=== PATIENT | female | born 1960 | race Caucasian/White ===

== ENCOUNTER 2019-02-17 09:26 | Emergency (ER) | payer BC, OTHER ==
--- OUTSIDE RECORDS SUMMARY | 2019-02-17 09:34 | XMS REPORT | Continuity of Care Document ---
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 Onset: 09/10 lower extremity Acute sinusitis Best Melchor M.D. Onset: 09/28/2011 Common cold Best Melchor M.D. Onset: 12/30/2011 Rheumatoid arthritis Best Melchor M.D. Onset: 01/27/2017 Migraine Best Melchor M.D. Onset: 01/27/2017 Family History Date Family Member(s) Observation Comments General grandparents with heart disease in their 80s; glaucoma Mother Breast lump Onset: (age 80 Years) Maternal Grandfather Congestive Heart Failure (CHF) Onset: (age 80 Years) Maternal Grandmother Congestive Heart Failure (CHF) Social History Type Date Description Comments Sex Unknown Marital Status Patient is Living Situation Lives with spouse Tobacco Use Start: Unknown Nonsmoker ETOH Use Denies alcohol use Tobacco Use Start: Unknown Patient has never smoked Enjoy Exercising Does enjoy exercising Allergies, Adverse Reactions, Alerts Active Allergies Reaction Severity Comments Date Sulfa Drugs 01/22/1998 Medications Active Medications SIG Qnty Indications Ordering Date Provider Amoxicillin take two 28caps J06.9 Anjana Hernandez 02/08/2019 500mg Capsules capsules by ALEXIA Rajan mouth twice daily until gone Nitrofurantoin Monohyd take one by 14caps N39.0 Anjana Hernandez 08/25/2018 Macro mouth twice ALEXIA Rajan 100mg Capsules daily for 7 days. Prednisone 1 tablet once 10tabs Mateus Valera 04/25/2018 20mg Tablets daily in the MD Garett morning Magnesium 1 by mouth Gale 12/10/2016 400mg Tablets every day - OTC LILLI Pinto Sumatriptan Succinate take 1 tablet 9tabs 784.0 Bets Melchor, 2010 100mg by mouth at M.D. Tablets onset of migraine, can repeat x 1 in 2 hours if necessary, hold for any vertigo or speech problems Orencia IV infusion Unknown every 4 weeks Hydroxychloroquine 1 by mouth Unknown Sulfate twice a day 200mg Tablets Methotrexate 7 tablets per Unknown 2.5mg Tablets week Folic Acid 1 by mouth Unknown 1mg Tablets every day Prednisone 1 po qd Unknown 5mg Tablets History Medications Amoxicillin 1 tab twice a day 14tabs J01.90 Mateus Valera 04/25/2018 - 875mg x 7 days MD Garett 08/25/2018 Tablets Amoxicillin 1 tab twice a day 14tabs J01.90 Gale 12/10/2016 - 875mg x 7 days LILLI Pinto 01/27/2017 Tablets Azithromycin 2 by mouth today 6tabs J01.90 Best Melchor, 08/28/2015 - 250mg then 1 by mouth M.D. 12/10/2016 Tablets every day x 4 days Tamiflu 1 by mouth every 10caps Best Melchor, 11/20/2014 - 75mg Capsules day x 10 days M.D. 11/30/2014 Amoxicillin 1 tab by mouth 21tabs 381.4 Gale 08/14/2014 - 500mg three times a day LILLI Pinto 10/16/2014 Tablets x 7 days Samples Levofloxacin 1 by mouth every 10tabs 461.8 Jorge Lopez M.D. 09/11/2013 - 500mg day for 10 days 08/14/2014 Tablets Amitriptyline HCL take 1 tablet 30tabs 784.0 Best Melchor, 08/24/2012 - every day at M.D. 08/28/2015 10mg Tablets bedtime Avelox 1 po qd 10tabs Best Melchor, 01/07/2012 - 400mg Tablets M.D. 01/17/2012 Azithromycin 2 po today then 1 6tabs 460 Best Melchor, 12/30/2011 - 250mg po qd x 4 days M.D. 01/04/2012 Tablets Levofloxacin 1 po qd x10 days 10tabs 461.8 Best Melchor, 09/28/2011 - 500mg M.D. 10/08/2011 Tablets Enoxaparin Sodium 80 mg sq bid 10units Best Melchor, 09/10/2011 - M.D. 09/28/2011 80mg/0.8ML Solution Percocet 1-2 po 6-8 hours 20tabs Best Melchor, 08/08/2011 - 5-325mg prn M.D. 12/30/2011 Tablets Orphenadrine Citrate 1 po bid 60tabs 784.0 Best Melchor, 07/04/2011 - CR M.D. 09/11/2013 100mg Tablets ER 12HR Nabumetone 1 po bid 60tabs 784.0 Best Melchor, 07/04/2011 - 500mg M.D. 07/30/2011 Tablets Nabumetone Take 1 Tablets By 40tabs Best Melchor, 05/14/2011 - 500mg Mouth Two Times M.D. 07/04/2011 Tablets A Day Orphenadrine Citrate Take 1 Tablets By 40tabs Best Melchor, 2010 - ER Mouth Two Times M.D. 07/04/2011 100mg Tablets ER A Day as Needed 12HR Orphenadrine Citrate 1 po bid prn 40tabs 784.0 Best Glez. Wilvercheri, 2010 - CR M.D. 05/05/2011 100mg Tablets ER 12HR Nabumetone 1 po bid 40tabs 784.0 Best A. Wilverlow, 04/23/2011 - 500mg M.D. 05/03/2011 Tablets Craniosacral evaluation and 784.0 Best AmarisAbdelrahman Melchor, 04/23/2011 - Physical Therapy treatment M.D. 05/05/2011 Xanax 1 po bid as 10tabs 300.09 Best Amaris. Jill, 01/05/2011 - 0.25mg Tablets directed, q6h ten M.D. 04/23/2011 Augmentin 1 po bid 20tabs 461.9 Best AmarisAbdelrahman Melchor, 10/29/2010 - 875-125mg M.D. 11/08/2010 Tablets Hydrocodone-Acetamin 1 q 6 hrs prn 30tabs [facility] 01/17/2010 - [facility] 10/29/2010 5-500mg Tablets Korbel Restoril 1-2 hs prn for 60caps Best Melchor, 01/17/2010 - 15mg sleep M.D. 09/11/2013 Capsules Augmentin 1 po bid with 20tabs 461.9 Best Melchor, 12/10/2008 - 875mg food M.D. 12/20/2008 Tablets Allerx Dose Pack 1 po bid 20tabs 461.9 Best AAbdelrahman Melchor, 12/10/2008 - M.D. 12/20/2008 8mg;2.5mg;120MG;2.5M Tablets Ambien 1 po qhs prn 30tabs 780.52 Best Melchor, 12/10/2008 - 10mg Tablets sleep M.D. 05/20/2010 Mobic 1 PO qd With Food 90tabs [facility] 09/04/2008 - 15mg Tablets prn [facility] 10/29/2010 Korbel Lyrica 1 up to tid as 90caps 716.90 Best Melchor, 02/29/2008 - 25mg Capsules directed M.D. 09/04/2008 Medrol Dosepak as Directed 1tabs 716.90 Best Melchor, 02/13/2008 - 4mg M.D. 02/29/2008 Tablets Amoxicillin 1 PO bid 20tabs 381.19 Hero Esquivelrer, [facility] 09/03/2006 - 500mg 12/27/2006 Tablets Cortisporin Otic 4-5 gtts Into R 1Bottle Paolo EagleAbdelrahman Bartlett, 05/26/2006 - Susp Ear qid Until M.D. 12/27/2006 Clear Ibuprofen [facility] 05/03/2006 - 200mg [facility] 09/04/2008 Capsules Korbel Mariana 1 po qd 30tabs Yue Keita, 03/30/2005 - 180mg Tablets Afnp-C 12/10/2008 Biaxin 1 po bid x10 days 20units Yue Keita, 01/22/2005 - 500mg Afnp-C 02/01/2005 Nasonex 2 sprays each 1units Yue Keita, 01/22/2005 - 50mcg nostril qd Afnp-C 05/03/2006 Amoxil 1 PO tid 30units Nathalie Colon, 12/29/2004 - 500mg Afnp-C 01/08/2005 Physical Therapy 1. rotator cuff 6WKS Ambrosio Oleary, 08/27/2004 - tendinitis M.D. 12/01/2004 3/WK bilaterally Continue Another 4-6 WKS To Achieve Maximal Improvement Mariana-D 1 po bid prn for 60units Yue Keita, 06/16/2004 - 60mg allergy symptoms Afnp-C 12/10/2008 Rhinocort Aqua 1 Star In Each 1units Hero Robert [facility] 06/16/2004 - Nostril qd 10/22/2004 Inhaler Keflex 1 po bid 20units Hero Robert, [facility] 06/16/2004 - 500mg 08/27/2004 Keflex 1 tab bid x 10 20units Yue Keita, 09/19/2003 - 500mg days Afnp-C 09/29/2003 Relafen 1 PO bid prn 60units Ambrosio Oleary, 08/21/2003 - 500mg M.D. 09/20/2003 Tramadol 1 PO tid prn 90units Ambrosio Oleary, 07/31/2002 - 50M G M.D. 08/27/2004 Skelaxin 1 PO tid prn 90units Ambrosio Oleary, 07/31/2002 - 400mg M.D. 08/27/2004 Amitriptyline 1 AT hs 30units Ambrosio Oleary, 07/31/2002 - 50mg M.D. 08/27/2004 Valium 1/2 - 1 Tab qd 30units Solomon Cade 05/16/2001 - 2mg prn Lola Mondragon 07/31/2002 Macrobid 1 14Tabs Hero Yesica, [facility] 05/06/2001 - 100mg 05/13/2001 PO bid With Meals Ibuprofen One Q8H prn Pain 0units Hero Robert, [facility] 02/18/2000 - 800mg 07/31/2002 Take With Food Amoxicillin 1 PO tid 30units Solomon Alyssia 10/30/1999 - 250mg Lola Mondragon 11/09/1999 Soma 1 PO qid prn 40unfalguni Solomon Cade 12/03/1998 - 350mg Lola Mondragon 12/23/1998 Valium 1 PO tid prn 12units Solomon Cade 11/28/1998 - 5mg Lola Mondragon 12/03/1998 Soma 1 PO qid prn 40units Solomon Cade 11/18/1998 - 350mg Lola Mondragon 12/02/1998 Naproxen 1 tid For One 50units Solomon Cade 11/18/1998 - 375mg Tab Week Then tid prn Lola Mondragon 12/02/1998 Keflex 1 PO bid 20tabs Jose Walters, 10/02/1998 - 5Oomg Tabs M.DAbdelrahman 10/12/1998 Motrin 1 PO tid prn 60units Paolo Bartlett, 09/18/1998 - 800mg M.DAbdelrahman 11/18/1998 Amoxicillin 1 PO tid 30units Solomon Alyssia 09/02/1998 - 250mg Lola Mondragon 09/12/1998 Robitussin ac 1/2-1 TSP PO Q4HS 4Oz Solomon Cade 09/02/1998 - Liq prn Cough Lola Mondragon 09/12/1998 Robitussin Dac 1-2 TSP Q 4-6 HRS 120cc Shakeel Avila, 01/22/1998 - Liq prn Cough M.DAbdelrahman 02/05/1998 Amoxicillin 1 Tablet 3 Times 30tabs Shakeel Avila, 01/22/1998 - 500mg Daily M.D. 02/01/1998 Tablets Oxycodone/Acetaminop 1 po q 6 hrs prn 45tabs Unknown - hen 04/23/2011 5-325mg Tablets Mobic 1 po bid 60tabs Unknown - 7.5mg Tablets 07/04/2011 Oxycodone/Acetaminop 1 po q8 hrs prn 60tabs Unknown - hen 09/10/2011 7.5-500mg Tablets Mariana Allergy 1 po qd 30tabs Unknown - 180mg 09/10/2011 Tablets Coumadin 1 1/2 po qd, 2 po 100tabs Best Melchor, - 5mg Tablets on Wednesday or as M.D. 08/24/2012 directed Meloxicam 1 po qd prn Unknown - 7.5mg 08/28/2015 Tablets Propranolol HCL take one tablet 60tabs Unknown - 40mg by mouth twice a 12/10/2016 Tablets day Amitriptyline HCL 4 po qhs Unknown - 04/25/2018 10mg Tablets Enbrel inject once a Unknown - Soln Prefill week 12/10/2016 Syringe Immunizations CPT Code Status Date Vaccine Lot # [id number] Given 07/05/2018 Influenza Vac, Quadriv[place], [place] [id number] Given 08/13/2017 Influenza Vac, [place] [id number] Given 12/10/2016 Tdap Tetanus, W Pertussis [id number] Given 04/20/2007 Tdap Tetanus, W Pertussis [id number] Given 08/21/2003 DO Not Use Split Influenza Virus Vaccine Vital Signs Date Vital Result Comment 08/25/2018 1:04pm BP Systolic 134 mmHg BP Diastolic 84 mmHg Heart Rate 80 /min Body Temperature 97.9 F Respiratory Rate 16 /min Height 63.25 inches 5'3.25" Weight 224.00 lb BMI (Body Mass Index) 39.4 kg/m2 04/25/2018 10:29am BP Systolic 168 mmHg BP Diastolic 102 mmHg Heart Rate 94 /min Body Temperature 98.8 F O2 % BldC Oximetry 96 % Height 63.25 inches 5'3.25" Weight 223.00 lb BMI (Body Mass Index) 39.2 kg/m2 01/27/2017 1:58pm BP Systolic 132 mmHg 158/88 on arrival BP Diastolic 80 mmHg 158/88 on arrival Heart Rate 84 /min Body Temperature 98.3 F Respiratory Rate 18 /min Height 63.25 inches 5'3.25" Weight 226.00 lb BMI (Body Mass Index) 39.7 kg/m2 12/10/2016 9:05am BP Systolic 166 mmHg BP Diastolic 72 mmHg Heart Rate 106 /min Body Temperature 98.6 F Respiratory Rate 20 /min O2 % BldC Oximetry 98 % Height 64.5 inches 5'4.50" Weight 220.12 lb BMI (Body Mass Index) 37.2 kg/m2 08/28/2015 3:22pm BP Systolic 120 mmHg BP Diastolic 80 mmHg Heart Rate 88 /min Body Temperature 98.9 F Respiratory Rate 16 /min O2 % BldC Oximetry 98 % Height 64.5 inches 5'4.50" Weight 209.00 lb BMI (Body Mass Index) 35.3 kg/m2 10/16/2014 10:36am BP Systolic 140 mmHg BP Diastolic 80 mmHg Heart Rate 74 /min Body Temperature 99.1 F Respiratory Rate 15 /min Height 64.5 inches 5'4.50" Weight 208.00 lb BMI (Body Mass Index) 35.1 kg/m2 08/14/2014 2:55pm BP Systolic 142 mmHg BP Diastolic 80 mmHg Heart Rate 76 /min Body Temperature 99.6 F Respiratory Rate 18 /min Height 63.75 inches 5'3.75" Weight 211.00 lb BMI (Body Mass Index) 36.5 kg/m2 09/11/2013 9:42am BP Systolic 160 mmHg BP Diastolic 82 mmHg Heart Rate 72 /min Body Temperature 98.9 F Respiratory Rate 16 /min Height 63.75 inches 5'3.75" Weight 199.00 lb BMI (Body Mass Index) 34.4 kg/m2 04/20/2013 3:29pm BP Systolic 142 mmHg BP Diastolic 84 mmHg Heart Rate 74 /min Body Temperature 98.0 F Respiratory Rate 18 /min Height 63.75 inches 5'3.75" Weight 202.00 lb BMI (Body Mass Index) 34.9 kg/m2 08/24/2012 3:11pm BP Systolic 134 mmHg BP Diastolic 80 mmHg Heart Rate 76 /min Body Temperature 98.8 F Respiratory Rate 16 /min Height 63.75 inches 5'3.75" Weight 191.00 lb BMI (Body Mass Index) 33.0 kg/m2 02/22/2012 3:48pm BP Systolic 130 mmHg BP Diastolic 90 mmHg Heart Rate 72 /min Body Temperature 98.3 F Respiratory Rate 16 /min Height 63.75 inches 5'3.75" 02/06/2012 9:08am BP Systolic 122 mmHg BP Diastolic 82 mmHg Heart Rate 68 /min Body Temperature 98.0 F Height 63.75 inches 5'3.75" Weight 185.00 lb BMI (Body Mass Index) 32.0 kg/m2 12/30/2011 2:13pm BP Systolic 136 mmHg BP Diastolic 70 mmHg Heart Rate 110 /min Body Temperature 99.8 F Respiratory Rate 16 /min O2 % BldC Oximetry 97 % Height 63.75 inches 5'3.75" Weight 182.00 lb BMI (Body Mass Index) 31.5 kg/m2 09/28/2011 3:14pm BP Systolic 158 mmHg BP Diastolic 80 mmHg Heart Rate 90 /min Body Temperature 98.4 F Respiratory Rate 20 /min O2 % BldC Oximetry 98 % Height 63.75 inches 5'3.75" 09/10/2011 3:49pm BP Systolic 140 mmHg BP Diastolic 84 mmHg Heart Rate 88 /min Body Temperature 98.6 F Respiratory Rate 16 /min Height 63.75 inches 5'3.75" 07/30/2011 3:15pm BP Systolic 142 mmHg BP Diastolic 80 mmHg Heart Rate 84 /min Body Temperature 98.9 F Respiratory Rate 16 /min Height 63.75 inches 5'3.75" Weight 181.00 lb BMI (Body Mass Index) 31.3 kg/m2 07/04/2011 8:57am BP Systolic 140 mmHg BP Diastolic 80 mmHg Heart Rate 64 /min Body Temperature 98.8 F Respiratory Rate 18 /min Height 63.75 inches 5'3.75" Weight 188.00 lb BMI (Body Mass Index) 32.5 kg/m2 04/23/2011 3:36pm BP Systolic 140 mmHg BP Diastolic 80 mmHg Heart Rate 84 /min Body Temperature 98.5 F Respiratory Rate 16 /min Height 63.75 inches 5'3.75" Weight 196.00 lb BMI (Body Mass Index) 33.9 kg/m2 01/05/2011 11:57am BP Systolic 140 mmHg BP Diastolic 80 mmHg Heart Rate 80 /min Body Temperature 98.6 F Respiratory Rate 16 /min Height 63.75 inches 5'3.75" Weight 197.00 lb BMI (Body Mass Index) 34.1 kg/m2 10/29/2010 11:41am BP Systolic 130 mmHg BP Diastolic 80 mmHg Heart Rate 92 /min Body Temperature 98.5 F Respiratory Rate 16 /min O2 % BldC Oximetry 99 % Height 63.75 inches 5'3.75" Weight 200.00 lb BMI (Body Mass Index) 34.6 kg/m2 07/10/2010 5:57pm BP Systolic 132 mmHg BP Diastolic 80 mmHg Heart Rate 84 /min Body Temperature 98.3 F Respiratory Rate 16 /min Height 63.75 inches 5'3.75" Weight 202.00 lb BMI (Body Mass Index) 34.9 kg/m2 05/20/2010 1:29pm BP Systolic 126 mmHg BP Diastolic 74 mmHg Heart Rate 96 /min Body Temperature 98.9 F Height 63.75 inches 5'3.75" Weight 201.00 lb BMI (Body Mass Index) 34.8 kg/m2 01/17/2010 11:52am BP Systolic 144 mmHg BP Diastolic 78 mmHg Heart Rate 68 /min Height 63.75 inches 5'3.75" Weight 197.00 lb BMI (Body Mass Index) 34.1 kg/m2 12/10/2008 3:23pm BP Systolic 130 mmHg BP Diastolic 90 mmHg Heart Rate 68 /min Body Temperature 98.5 F Respiratory Rate 16 /min Weight 207.00 lb 09/04/2008 11:15am BP Systolic 150 mmHg BP Diastolic 88 mmHg Heart Rate 88 /min Body Temperature 98.5 F Height 63.75 inches 5'3.75" Weight 208.00 lb BMI (Body Mass Index) 36.0 kg/m2 02/29/2008 11:05am BP Systolic 138 mmHg BP Diastolic 80 mmHg Heart Rate 68 /min Body Temperature 98.2 F Respiratory Rate 16 /min Height 63.75 inches 5'3.75" Weight 204.00 lb BMI (Body Mass Index) 35.3 kg/m2 02/13/2008 4:45pm BP Systolic 144 mmHg BP Diastolic 70 mmHg Heart Rate 76 /min Body Temperature 99.0 F Weight 204.00 lb 04/20/2007 2:41pm BP Systolic 122 mmHg BP Diastolic 82 mmHg Heart Rate 78 /min Respiratory Rate 13 /min 12/27/2006 2:28pm BP Systolic 150 mmHg BP Diastolic 80 mmHg Body Temperature 99.6 F Weight 212.00 lb 08/30/2006 1:39pm BP Systolic 132 mmHg BP Diastolic 82 mmHg Heart Rate 72 /min Body Temperature 99.3 F Respiratory Rate 15 /min 05/26/2006 10:59am BP Systolic 130 mmHg BP Diastolic 80 mmHg Heart Rate 72 /min Body Temperature 98.8 F Weight 208.00 lb 05/03/2006 11:02am BP Systolic 130 mmHg BP Diastolic 74 mmHg Heart Rate 68 /min Weight 201.00 lb 01/22/2005 8:55am BP Systolic 130 mmHg BP Diastolic 82 mmHg Heart Rate 88 /min Body Temperature 99.7 F Weight 201.00 lb 12/29/2004 10:27am BP Systolic 140 mmHg BP Diastolic 86 mmHg Heart Rate 76 /min Body Temperature 96.9 F 10/22/2004 10:54am BP Systolic 138 mmHg BP Diastolic 80 mmHg Heart Rate 78 /min Weight 200.00 lb 08/27/2004 11:39am BP Systolic 160 mmHg BP Diastolic 88 mmHg Heart Rate 80 /min Weight 196.00 lb 06/16/2004 7:48pm BP Systolic 120 mmHg BP Diastolic 80 mmHg Heart Rate 72 /min Body Temperature 98.6 F 09/19/2003 2:11pm BP Systolic 130 mmHg BP Diastolic 80 mmHg Heart Rate 68 /min Body Temperature 97.5 F 09/05/2003 6:53pm BP Systolic 138 mmHg BP Diastolic 90 mmHg Body Temperature 97.9 F Weight 196.00 lb 08/21/2003 8:54am BP Systolic 140 mmHg BP Diastolic 80 mmHg Heart Rate 84 /min Weight 196.00 lb 07/31/2002 11:30am Weight 192.00 lb 05/16/2001 8:56am BP Systolic 110 mmHg BP Diastolic 78 mmHg Heart Rate 84 /min Weight 212.00 lb 05/06/2001 3:11pm BP Systolic 108 mmHg BP Diastolic 80 mmHg Body Temperature 99.6 F Weight 215.00 lb 04/22/2001 10:44am BP Systolic 132 mmHg BP Diastolic 84 mmHg Heart Rate 72 /min Body Temperature 98.1 F Weight 210.00 lb 09/13/2000 9:15am BP Systolic 130 mmHg BP Diastolic 70 mmHg Heart Rate 72 /min Weight 211.00 lb 07/01/2000 11:34am BP Systolic 134 mmHg BP Diastolic 80 mmHg Heart Rate 92 /min Weight 210.00 lb 02/18/2000 4:59pm BP Systolic 160 mmHg BP Diastolic 76 mmHg Body Temperature 98.1 F Weight 218.00 lb 10/30/1999 9:13am Body Temperature 98.1 F Weight 213.00 lb 11/28/1998 12:12pm BP Systolic 110 mmHg LG Cuff BP Diastolic 80 mmHg LG Cuff Weight 215.00 lb 11/18/1998 3:58pm BP Systolic 154 mmHg LA LG Cuff BP Diastolic 78 mmHg LA LG Cuff 09/02/1998 10:53am Body Temperature 97.8 F Weight 211.00 lb 01/22/1998 2:47pm Body Temperature 99.1 F Results Test Date Facility Test Result H/L Range Note Ua - Micro (a) 08/25/2018 [facility] Appearance clear (607)- - Color yellow Glucose, Urine ([facility]/CTX) negtaive Bilirubin negative Ketones negative SP Grav 1.020 Blood negative PH 5.5 Protein negative Urobil 0.2 Nitrite negative Leukocytes (a/[facility]) small WBC (a,[facility]) 10-15 RBC 0-2 Mucus 0 /Lpf Epith rare /Lpf Bacteria +3 /Hpf Urine Culture And Sensitivities 08/25/2018 [facility] Urine Culture SEE RESULT BELOW 1 Lipid Profile (Trig/Chol/HDL) 10/16/2014 [facility] Triglycerides 174 mg/dL N 2 Cholesterol 215 mg/dL N 3 HDL Cholesterol 55.0 mg/dL N 4 LDL Cholesterol 125 mg/dL N 5 Comp Metabolic Panel 10/16/2014 [facility] Sodium 138 mmol/L N 133-145 Potassium 4.7 mmol/L N 3.5-5.0 Chloride 103 mmol/L N 101-111 Co2 Carbon Dioxide 30 mmol/L N 22-32 Anion Gap 5 mmol/L N 2-11 Glucose 91 mg/dL N 70-100 Blood Urea Nitrogen 16 mg/dL N 6-24 Creatinine 1.03 mg/dL High 0.51-0.95 BUN/Creatinine Ratio 15.5 N 8-20 Calcium 10.2 mg/dL N 8.6-10.3 Total Protein 7.2 g/dL N 6.4-8.9 Albumin 4.4 g/dL N 3.2-5.2 Globulin 2.8 g/dL N 2-4 Albumin/Globulin Ratio 1.6 N 1-3 Total Bilirubin 0.40 mg/dL N 0.2-1.0 Alkaline Phosphatase 44 U/L N 34-104 Alt 28 U/L N 7-52 Ast 17 U/L N 13-39 Egfr Non- 55.8 N >60 Egfr 71.8 N >60 6 Laboratory test 09/02/2012 [facility] C Reactive 0.6 mg/dL High Less Than finding Protein 0.5 Laboratory test 09/02/2012 [facility] Erythrocyte Sed 10 MM/HR 0-30 finding Rate Jacqueline 09/02/2012 [facility] Anti Nuclear Negative Negative (Antinuclear Antibody Screen Antibodies) Laboratory test 02/06/2012 [facility] ([facility]) 2.0 2-3 finding (607)- - Laboratory test 01/21/2012 [facility] ([facility]) 2.5 2.0-3.0 finding (607)- - Laboratory test 01/05/2012 [facility] ([facility]) 1.7 Low 2.0-3.0 finding (607)- - Laboratory test 12/30/2011 [facility] Throat - Beta NEG@48HRS finding (607)- - Strep Fma Quickstrep neg Negative Influenza A&B 12/30/2011 [facility] Influenza A neg (607)- - Influenza B neg Pertussis PCR 12/30/2011 [facility] M <SEE 7 NOTE> Laboratory test 12/08/2011 [facility] ([facility]) 1.8 Low 2.0-3 finding (607)- - .0 Laboratory test 11/05/2011 [facility] ([facility]ma) 2.3 2-3 finding (607)- - Laboratory test 10/15/2011 [facility] ([facility]ma) 1.9 Low 2-3 finding (607)- - Laboratory test 10/01/2011 [facility] (Fma) 2.5 2.0-3 finding (607)- - .0 Laboratory test 09/22/2011 [facility] (Fma) 2.3 2-3 finding (607)- - Laboratory test 09/18/2011 [facility] (Fma) 2.0 2.0-3 finding (607)- - .0 Laboratory test 09/14/2011 [facility] (Fma) 1.5 Low 2-3 finding (607)- - Laboratory test 09/10/2011 [facility] (Fma) 1.5 Low 2.0-3 finding (607)- - .0 Laboratory test 09/04/2011 [facility] (Fma) 2.4 2.0-3 finding (607)- - .0 Laboratory test 09/01/2011 [facility] (Fma) 1.8 Low 2.0-3 finding (607)- - .0 Laboratory test 08/31/2011 [facility] (Fma) 1.7 Low 2-3 finding (607)- - Ua - Non Micro 07/30/2011 [facility] Appearance CLEAR (a) (607)- - Color YELLOW Glucose NEG Bilirubin NEG Ketones TRACE # SP Grav 1.025 Blood NEG PH 6.0 Protein NEG Urobil 0.2 Nitrite NEG Leukocytes ([facility]) NEG Comp Metabolic Panel 06/27/2011 [facility] Sodium 138 mmol/L 135-145 Potassium 3.9 mmol/L 3.5-5.0 Chloride 104 mmol/L 101-111 Co2 (Carbon Dioxide) 26.0 mmol/L 22-32 Anion Gap 8.0 mmol/L 2-11 8 Glucose 120 mg/dL High 70-100 BUN 13 mg/dL 6-24 Creatinine 0.9 mg/dL 0.50-1.40 One Over Creatinine 1.11 BUN/Creatinine Ratio 14.4 8-20 Calcium 9.7 mg/dL 8.1-9.9 Total Protein 6.7 GM/DL 6.2-8.1 Albumin 4.1 GM/DL 3.6-5.4 Globulin 2.6 GM/DL 2-4 Albumin/Globulin Ratio 1.6 1-3 Bilirubin Total 0.9 mg/dL 0.4-1.5 9 Alkaline Phosphatase 44 U/L 30-110 Alt (SGPT) 22 U/L 14-54 Ast (Sgot) 21 U/L 12-42 eGFR Non- 66.0 > 60 eGFR 84.9 > 60 10 CBC Auto Diff 06/27/2011 [facility] White Blood Count 10.0 CUMM 4.8-10.8 Red Cell Count 4.57 CUMM 4.2-5.4 Hemoglobin 15.0 g/dL 12.0-16.0 Hematocrit 44 % 35-47 Mean Corpuscular Volume 96 um3 79-97 Mean Corpuscular Hemoglob 33 pg High 27-31 Mean Corpuscular HGB Cone 34 g/dL 32-36 Redcell Distribution WDTH 14 % 10.5-15 Platelet Count 203 CUMM 150-450 Mean Platelet Volume 9.9 um3 7.4-10.4 Gran % 75.7 % 38-83 Lymph % 17.1 % Low 25-47 Mononuclear % 5.3 % 1-9 Eosinophil % 1.3 % 0-6 Basophil % 0.6 % 0-2 Abs Lymphs 1.7 1.0-4.8 Abs Mononuclear 0.5 0-0.8 Absolute Neutrophil Count 7.6 1.5-7.7 Abs Eosinophils 0.1 0-0.6 Abs Basophils 0.1 0-0.2 11 Laboratory test 06/27/2011 [facility] Erythrocyte Sed 19 MM/HR 0-30 finding Rate Basic Metabolic 01/05/2011 [facility] Glucose 94 mg/dL 70-100 12 Panel [address] [place] [address] [phone] BUN 14 mg/dL 4-18 Creatinine, Serum 0.90 mg/dL 0.50-1.10 Sodium 136 mmol/L 136-146 Potassium 4.7 mmol/L 3.5-5.3 Chloride 102 mmol/L 98-110 Carbon Dioxide 30 mmol/L 20-32 Calcium 10.0 mg/dL 8.4-10.4 Egfr (Calculated) 01/05/2011 [facility] Estimated GFR (CALCULATED) [address] [place] [address] [phone] Egfr >60 13 Egfr, -Trinidadian >60 14 Surgical 09/01/2010 [facility] Surgical 15 Pathology Pathology <SEE NOTE> Lipid Panel 07/10/2010 [facility] Cholesterol, 227 mg/dL Abnormal <200 [address] [place] [address] [phone] Triglycerides 125 mg/dL <150 HDL Cholesterol 68 mg/dL High 40-60 Chol/HDL Cholesterol 3.3 17 LDL Cholesterol, Calc. 134 mg/dL Abnormal 18 LDL/HDL Cholesterol 2.0 19 Comprehensive Metabolic 07/10/2010 [facility] Glucose 89 mg/dL 70-100 [address] [place], [place] [id number] [phone] BUN 16 mg/dL 4-18 Creatinine, Serum 0.94 mg/dL 0.50-1.10 Sodium 137 mmol/L 136-146 Potassium 4.6 mmol/L 3.5-5.3 Chloride 101 mmol/L 98-110 Carbon Dioxide 29 mmol/L 20-32 Albumin 4.7 g/dL 3.5-4.7 Protein, Total 7.6 g/dL 6.4-8.3 Calcium 10.2 mg/dL 8.4-10.4 Alkaline Phosphatase 44 U/L 10-118 Sgot (Ast) 18 U/L 3-40 SGPT (Alt) 28 U/L 7-50 Bilirubin, Total 0.50 mg/dL 0.30-1.20 Ua 07/10/2010 [facility] [place] [address] [phone] Urine Appearance CLEAR Clear Urine Specific [place] 1.011 1.005-1.030 Urine Leukocytes NEGATIVE Negative Urine Nitrite NEGATIVE Negative Urine PH 5.0 5.0-8.0 Urine Protein NEGATIVE mg/dL Negative Urine Glucose NEGATIVE mg/dL Negative Urine Ketones NEGATIVE mg/dL Negative Urine Urobilinogen NORMAL mg/dL Normal Or <1 Urine Bilirubin NEGATIVE Negative Urine Occult Blood NEGATIVE Negative Urine Microscopic PERFORMED 0 20 WBC <1 /hpf 0-5 RBC <1 /hpf 0-3 Egfr 07/10/2010 [facility] Estimated GFR (CALCULATED) [address] [place] [address] [phone] Egfr >60 21 Egfr, -Trinidadian >60 22 Comprehensive 05/20/2010 [facility] Glucose 102 mg/dL High 70-100 23 [place] [address] [phone] BUN 17 mg/dL 4-18 Creatinine, Serum 0.96 mg/dL 0.50-1.10 Sodium 139 mmol/L 136-146 Potassium 4.8 mmol/L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
--- NOTE | 2019-02-17 10:06 | ED ---
HPI Chest Pain - HPI Summary HPI Summary: Pt is a 58 y/o F presenting to the ED with a chief complaint of chest pain onset this morning at 0500 upon waking up. The pain is located in the center of her chest, radiating to her back, described as pressure that is somewhat sharp, and comes in waves. She also reports mild nausea. She also states there is some back pain she has had for the past couple of days that radiates down her legs. - History of Current Complaint Chief Complaint: EDChestWallPain Time Seen by Provider: 02/17/19 09:43 Hx Obtained From: Patient Onset/Duration: Started Hours Ago, Still Present Timing: Constant, Lasting Hours Initial Severity: Moderate Current Severity: Severe Pain Intensity: 8 Pain Scale Used: 0-10 Numeric Chest Pain Location: Left Anterior Chest Pain Radiates: No Character: Pressure/Squeezing, Sharp/Stabbing Aggravating Factor(s): Nothing Alleviating Factor(s): Nothing Associated Signs and Symptoms: Positive: Chest Pain, Nausea, Back Pain - Allergy/Home Medications Allergies/Adverse Reactions: Allergies Allergy/AdvReac Type Severity Reaction Status Date / Time Sulfa (Sulfonamide Allergy Hives Verified 02/17/19 09:37 Antibiotics) Home Medications: Home Medications Abatacept* [Orencia*] 1,000 mg IV MONTHLY 02/17/19 [History Confirmed 02/17/19] Folic Acid TAB* [Folvite TAB*] 1 mg PO DAILY 02/17/19 [History Confirmed ] Hydroxychloroquine TAB* [Plaquenil TAB*] 200 mg PO DAILY 02/17/19 [History Confirmed 02/17/19] Magnesium Oxide [Magnesium 400 mg] 1 tab PO DAILY 02/17/19 [History Confirmed ] Methotrexate TAB* 15 mg PO SEE INSTRUCTIONS 02/17/19 [History Confirmed 02/17/19 ] predniSONE TAB* [Deltasone TAB*] 2.5 mg PO DAILY 02/17/19 [History Confirmed ] PMH/Surg Hx/FS Hx/Imm Hx Previously Healthy: Yes Endocrine/Hematology History: Denies: Hx Diabetes Cardiovascular History: Denies: Hx Congestive Heart Failure, Hx Hypertension, Hx Pacemaker/ICD Respiratory History: Denies: Hx Asthma Musculoskeletal History: Reports: Other Musculoskeletal History - osteoarthritis no current tx Sensory History: Denies: Hx Hearing Aid Neurological History: Reports: Other Neuro Impairments/Disorders - constant CARRILLO worsens to migraine visual aura, neck pain associated Psychiatric History: Denies: Hx Panic Disorder - Cancer History Hx Chemotherapy: No Hx Radiation Therapy: No - Surgical History Surgery Procedure, Year, and Place: appy tubal, antonio carpal tunnel,rotater cuff, left knee, tarsal tunnel repair. throat to stretch muscle Infectious Disease History: No Infectious Disease History: Denies: Traveled Outside the [place] in Last 30 Days - Family History Known Family History: Negative: Cardiac Disease, Hypertension, Diabetes - Social History Alcohol Use: Rare Hx Substance Use: No Substance Use Type: Reports: None Hx Tobacco Use: No Smoking Status (MU): Never Smoked Tobacco Review of Systems Positive: Chest Pain Positive: Nausea Positive: Myalgia All Other Systems Reviewed And Are Negative: Yes Physical Exam - Summary Physical Exam Summary: Appearance: The patient is well-nourished in no acute distress and in no acute pain. Skin: The skin is warm and dry and skin color reflects adequate perfusion. HEENT: The head is normocephalic and atraumatic. The pupils are equal and reactive. The conjunctivae are clear and without drainage. Nares are patent and without drainage. Mouth reveals moist mucous membranes and the throat is without erythema and exudate. The external ears are intact. The ear canals are patent and without drainage. The tympanic membranes are intact. Neck: The neck is supple with full range of motion and non-tender. There are no carotid bruits. There is no neck vein distension. Respiratory: Chest is non-tender. Lungs are clear to auscultation and breath sounds are symmetrical and equal. Cardiovascular: Heart is regular rate and rhythm. There is no murmur or rub auscultated. There is no peripheral edema and pulses are symmetrical and equal. Abdomen: The abdomen is soft and non-tender. There are normal bowel sounds heard in all four quadrants and there is no organomegaly palpated. Musculoskeletal: There is tenderness noted in the L paralumbar area. Extremities are non-tender with full range of motion. There is good capillary refill. There is no peripheral edema or calf tenderness elicited. Neurological: Patient is alert and oriented to person, place and time. The patient has symmetrical motor strength in all four extremities. Cranial nerves are grossly intact. Deep tendon reflexes are symmetrical and equal in all four extremities. Psychiatric: The patient has an appropriate affect and does not exhibit any anxiety or depression. Triage Information Reviewed: Yes Vital Signs On Initial Exam: Initial Vitals Temp Pulse Resp BP Pulse Ox 97.5 F 77 16 179/110 100 02/17/19 09:30 02/17/19 09:30 02/17/19 09:30 02/17/19 09:30 02/17/19 09:30 Vital Signs Reviewed: Yes Diagnostics - Vital Signs Vital Signs Temp Pulse Resp BP Pulse Ox 02/17/19 09:55 69 16 02/17/19 09:40 76 21 174/85 98 02/17/19 09:39 73 13 100 02/17/19 09:30 97.5 F 77 16 179/110 100 - Laboratory Result Diagrams: 02/17/19 11:02 02/17/19 11:02 Lab Statement: Any lab studies that have been ordered have been reviewed, and results considered in the medical decision making process. - Radiology CXR Radiology Interpretation Completed By: Radiologist Summary of Radiographic Findings: No active cardiopulmonary disease is noted. ED physician has reviewed this report. - CT L-spine CT CT Interpretation Completed By: Radiologist Summary of CT Findings: DEGENERATIVE DISC DISEASE AND OSTEOARTHRITIS MOST PRONOUNCED AT C4 L5. THERE IS MODERATE TO SEVERE NARROWING OF THE CENTRAL CANAL AT THIS LEVEL. THERE IS MULTILEVEL NEUROFORAMINAL NARROWING DESCRIBED ABOVE. ED physician has reviewed this report. - EKG 0937 Cardiac Rate: NL - 70bpm EKG Rhythm: Sinus Rhythm ST Segment: Normal Ectopy: None Summary of EKG Findings: An EKG at 0937 shows NSR at 70bpm with no STEMI. Chest Pain Course/Dx - Course Course Of Treatment: Ms. Tran presented with a primary complaint of chest pain that started today. She is also complaining of back pain in her low back that goes down her left leg that she's had for a long time but is much worse over the last week or so. It hurts to move. She cannot reproduce her chest pain and there are no associated symptoms. Her exam was positive for some left paralumbar tenderness and a positive straight leg raise. I cannot reproduce her chest pain. She was kept on a monitor and 2 troponins were obtained. At one point she began to complain that her back pain was worsening but her chest pain was going away and I gave her Ativan as a muscle relaxer as well as Toradol. This did not really relieve her pain and she was given Dilaudid. She was able to ambulate around with that. 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 This was positive for herniated disc in the appropriate location. I don't think an MRI is indicated at this point. She will need follow-up and likely physical therapy and ultimately may get an MRI scan and surgical consult. In the meantime I will continue the muscle relaxer Ativan and pain medication tramadol. - Diagnoses Provider Diagnoses: Herniated disc Discharge - Sign-Out/Discharge Documenting (check all that apply): Patient Departure Patient Received Moderate/Deep Sedation with Procedure: No - Discharge Plan Condition: Stable Disposition: HOME Prescriptions: LORazepam TAB(*) [Ativan TAB(*)] 1 mg PO Q6H PRN #20 tab MDD 4 PRN Reason: Pain traMADol TAB* [Ultram*] 50 mg PO Q6HR PRN #20 tab MDD 4 PRN Reason: Pain Referrals: Best Melchor MD [Primary Care Provider] - Additional Instructions: Follow up with Dr. Melchor as scheduled. Return to the ED with any new or worsening symptoms. - Billing Disposition and Condition Condition: STABLE Disposition: Home - Attestation Statements Document Initiated by Priyanka: Yes Documenting Scribe: Meg Mathis Provider For Whom Priyanka is Documenting (Include Credential): Jose Mota MD. Scribe Attestation: Meg Barber, fayed for Jose Mtoa MD. on 02/17/19 at 1837. Scribe Documentation Reviewed: Yes Provider Attestation: The documentation as recorded by the Meg baeza accurately reflects the service I personally performed and the decisions made by me, Jose Mota MD. Status of Scribe Document: Viewed
[2019-02-17 11:12] LABS: Hematocrit 43 % (33-41); Hemoglobin 14.2 g/dL (12.0-16.0); Mean Corpuscular HGB Conc 33 g/dL (31-36); Mean Corpuscular Hemoglobin 33 pg (27-31); Mean Corpuscular Volume 99 fL (80-97); Mean Platelet Volume 8.5 fL (7.4-10.4); Platelet Count 236 10^3/uL (150-450); Red Blood Count 4.33 10^6 /uL (3.70-4.87); Red Cell Distribution Width 14 % (10.5-15); White Blood Count 10.5 10^3/uL (3.5-10.8)
[2019-02-17 11:32] LABS: Troponin I 0.01 ng/mL (<0.04)
[2019-02-17 11:33] LABS: Albumin 4.1 g/dL (3.2-5.2); Albumin/Globulin Ratio 1.6 (1-3); BUN/Creatinine Ratio 19.8 (8-20); Calcium 9.9 mg/dL (8.6-10.3); EGFR African American 58.1 (>60); Globulin 2.5 g/dL (2-4); Potassium 4.7 mmol/L (3.5-5.0); Total Bilirubin 0.3 mg/dL (0.2-1.0); Total Protein 6.6 g/dL (6.4-8.9)
[2019-02-17 11:42] LABS: ABS Basophils 0.1 10^3/ul (0-0.2); ABS Eosinophils 0.1 10^3/ul (0-0.6); ABS Lymphocytes 1.7 10^3/ul (1.0-4.8); ABS Neutrophils 7.6 10^3/ul (1.5-7.7); ABS Nucleated RBC 0 10^3/ul; Eosinophil % 0.6 %; Nucleated Red Blood Cells % 0
[2019-02-17] MEDS ORDERED: Ketorolac INJ* 30 MG/ML 1 ML VIAL IV PUSH ONE (12:55)
[2019-02-17] MEDS ORDERED: Lorazepam PYXIS KEY PRN (12:55)
[2019-02-17] MEDS ORDERED: LORazepam INJ* 2 MG/ML 1 ML VIAL IV ONE (12:55)
[2019-02-17] MEDS ORDERED: Lorazepam PYXIS KEY ONE (13:14)
[2019-02-17] MEDS ORDERED: Ondansetron INJ* 2 MG/ML VIAL IV ONE (14:53)
[2019-02-17] MEDS ORDERED: HYDROmorphone INJ1* 1 MG/ML SYRINGE IV SLOW PU ONE (14:53)
[2019-02-17 18:14] VITALS: BP 128/67
== END 2019-02-17 18:13 | disposition home or self-care (01) ==
LOC: ED 09:26
DX: M51.26 Other intervertebral disc displacement, lumbar region (principal); M51.36 Other intervertebral disc degeneration, lumbar region; M47.9 Spondylosis, unspecified; M19.90 Unspecified osteoarthritis, unspecified site; Z88.2 Allergy status to sulfonamides
CPT/HCPCS: 36415; 71045; 72131; 80053; 83605; 84484; 85025; 93005; 96374; 96375; 99284; J1170; J1885; J2060; J2405

== ENCOUNTER 2019-03-20 12:46 | Emergency (ER) | payer BC ==
[2019-03-20] MEDS ORDERED: Metoclopramide IV* 5 MG/ML 2 ML VIAL IV ONE (13:14)
[2019-03-20] MEDS ORDERED: NS 0.9% 1000 ML** 1,000 ML IV ONE (13:14)
[2019-03-20] MEDS ORDERED: Ketorolac INJ* 30 MG/ML 1 ML VIAL IV PUSH ONE (13:14)
[2019-03-20] MEDS ORDERED: diPHENhydraMINE IV* 50 MG/ML 1 ml VIAL (BENADRYL) IV ONE (13:14)
--- NOTE | 2019-03-20 14:32 | ED ---
Headache - HPI Summary HPI Summary: Patient is an otherwise healthy 58-year-old female who presents to the ED with diffuse migraine headache. History of migraine headaches. She states symptoms were acute onset this morning, diffusely throughout the frontal area which is consistent with her previous migraine headaches. Endorses nausea and vomiting. She took her Imitrex twice at home, however was unable to keep it down as she continued to have emesis. She states this feels like her typical migraine which usually is improved with Imitrex if she is able to keep it down. She endorses photophobia, but no phonophobia. Denies any weakness. Denies this headache as acute onset or worst of life. - History Of Current Complaint Chief Complaint: EDHeadache Stated Complaint: MIGRAINE PER PT Time Seen by Provider: 03/20/19 13:00 Hx Obtained From: Patient Onset/Duration: Sudden Onset Initially Headache Was: Initial Pain Scale(0-10)= - 10 Currently Pain Is: Current Pain Scale(0-10)= - 8 Timing: Constant Character: Throbbing Aggravating Factor: Nothing Allevating Factors: Nothing Associated Signs And Symptoms: Negative - Risk Factors SAH Risk Factors: Negative Meningitis Risk Factors: Negative SDH Risk Factors: Negative Temporal Arteritis Risk Factors: Negative - Allergies/Home Medications Allergies/Adverse Reactions: Allergies Allergy/AdvReac Type Severity Reaction Status Date / Time Sulfa (Sulfonamide Allergy Hives Verified 03/20/19 12:51 Antibiotics) PMH/Surg Hx/FS Hx/Imm Hx Previously Healthy: Yes Endocrine/Hematology History: Denies: Hx Diabetes Cardiovascular History: Denies: Hx Congestive Heart Failure, Hx Hypertension, Hx Pacemaker/ICD Respiratory History: Denies: Hx Asthma Musculoskeletal History: Reports: Other Musculoskeletal History - osteoarthritis no current tx Sensory History: Denies: Hx Hearing Aid Neurological History: Reports: Other Neuro Impairments/Disorders - constant CARRILLO worsens to migraine visual aura, neck pain associated Psychiatric History: Denies: Hx Panic Disorder - Cancer History Hx Chemotherapy: No Hx Radiation Therapy: No - Surgical History Surgery Procedure, Year, and Place: appy tubal, antonio carpal tunnel,rotater cuff, left knee, tarsal tunnel repair. throat to stretch muscle - Immunization History Hx Pertussis Vaccination: No Immunizations Up to Date: Yes Infectious Disease History: No Infectious Disease History: Denies: Traveled Outside the [place] in Last 30 Days - Family History Known Family History: Negative: Cardiac Disease, Hypertension, Diabetes - Social History Occupation: Employed Full-time Lives: With Family Alcohol Use: Rare Hx Substance Use: No Substance Use Type: Reports: None Hx Tobacco Use: No Smoking Status (MU): Never Smoked Tobacco Review of Systems Constitutional: Negative Negative: Fever, Chills, Fatigue, Skin Diaphoresis Positive: Photophobia. Negative: Blurred Vision, Diplopia, Drainage, Erythema Negative: Dental Pain Negative: Palpitations Negative: Shortness Of Breath, Cough Genitourinary: Negative Positive: no symptoms reported, see HPI Negative: Arthralgia, Myalgia Positive: Headache All Other Systems Reviewed And Are Negative: Yes Physical Exam Triage Information Reviewed: Yes Vital Signs On Initial Exam: Initial Vitals Temp Pulse Resp BP Pulse Ox 95.5 F 87 19 209/100 97 03/20/19 12:48 03/20/19 12:48 03/20/19 12:48 03/20/19 12:48 03/20/19 12:48 Vital Signs Reviewed: Yes Appearance: Positive: Well-Appearing, Well-Nourished Skin: Positive: Warm, Skin Color Reflects Adequate Perfusion Head/Face: Positive: Normal Head/Face Inspection Eyes: Positive: EOMI, Conjunctiva Clear Neck: Positive: Supple, Nontender, No Lymphadenopathy Respiratory/Lung Sounds: Positive: Clear to Auscultation, Breath Sounds Present Cardiovascular: Positive: Pulses are Symmetrical in both Upper and Lower Extremities Musculoskeletal: Positive: Strength/ROM Intact Neurological: Positive: Speech Normal Psychiatric: Positive: Affect/Mood Appropriate AVPU Assessment: Alert Diagnostics - Vital Signs Vital Signs Temp Pulse Resp BP Pulse Ox 03/20/19 12:48 95.5 F 87 19 209/100 97 - Laboratory Lab Statement: Any lab studies that have been ordered have been reviewed, and results considered in the medical decision making process. Headache Course/Dx - Course Course Of Treatment: Patient is evaluated for diffuse headache. History of migraines. Lungs CTA. RRR. Patient appears otherwise well. She states this feels similar to what she normally has. She is usually treated with Imitrex by mouth, however has been unable to keep it down at home. She arrives to the ED in 8/10 pain. She is given 1 L fluids, Toradol 30 mg IV, Benadryl 50 mg IV and Reglan 10 mg IV. After approximately one hour, patient endorses feeling much improved. She is currently rating her pain a 1/10. She will be discharged home with migraine headache and is given Zofran as prescription. - Diagnoses Differential Diagnosis/HQI/PQRI: Migraine Provider Diagnoses: Migraine Discharge - Sign-Out/Discharge Documenting (check all that apply): Patient Departure Patient Received Moderate/Deep Sedation with Procedure: No - Discharge Plan Condition: Stable Disposition: HOME Prescriptions: Ondansetron ODT TAB* [Zofran 4 MG Odt TAB*] 4 mg PO Q6H PRN #12 tab.odt MDD 4 PRN Reason: Nausea Ondansetron ODT TAB* [Zofran 4 MG Odt TAB*] 4 mg PO Q6H PRN #12 tab.odt MDD 4 PRN Reason: Nausea Patient Education Materials: Migraine Headache (ED) Referrals: Best Melchor MD [Primary Care Provider] - Additional Instructions: Zofran as needed for nausea if this happens again at home, try ibuprofen 600 mg, Zofran 1 tab and Benadryl 50 mg - Billing Disposition and Condition Condition: STABLE Disposition: Home
[2019-03-20 17:13] VITALS: BP 150/78
== END 2019-03-20 15:38 | disposition home or self-care (01) ==
LOC: ED 12:46
DX: G43.909 Migraine, unspecified, not intractable, without status migrainosus (principal); R11.2 Nausea with vomiting, unspecified; Z88.2 Allergy status to sulfonamides
CPT/HCPCS: 96361; 96374; 96375; 99282; J1200; J1885; J2765

== ENCOUNTER 2020-12-10 07:52 | Inpatient (IN) ==
[~2020-12-10 07:52] MED LIST: Buffered Lidocaine 1% SYRIN 1 ml INTRADERM ONE; Lactated Ringers 1000 ml BAG 1,000 ML IV SCH
[2020-12-10] MEDS ORDERED: Heparin 5000 UNITS/ML 1 mL VIAL ONE (08:19)
[2020-12-10] MEDS ORDERED: ceFAZolin 1 GM ADVAN 1 GM ADDV.VIAL IVPB ONE (08:19)
[2020-12-10] MEDS ORDERED: ceFAZolin 2 GM PREMIX 2 GM/50 ML BAG ONE (08:19)
[2020-12-10] MEDS ORDERED: Buffered Lidocaine 1% SYRIN 1 ml INTRADERM ONE (08:19)
[2020-12-10] MEDS ORDERED: fentaNYL 250 mcg/5 ml 50 MCG/ML 5 ml VIAL (250 MCG) ONE ×2 (08:20→10:51)
[2020-12-10] MEDS ORDERED: Midazolam 2 mg/2 ml VIAL 1 mg/ml 2 ml VIAL (2 mg) ONE (08:20)
[2020-12-10] MEDS ORDERED: Rocuronium 50 mg VIAL 10 mg/ml 5 ml VIAL (50 mg) ONE ×2 (08:20→10:49)
[2020-12-10] MEDS ORDERED: DiMENhydriNATE IV 50 mg/ml 1 ml VIAL IV PUSH PRN (08:37)
[2020-12-10] MEDS ORDERED: Naloxone 0.4 mg VIAL 0.4 mg/ml 1 ml VIAL IV PRN (08:37)
[2020-12-10] MEDS ORDERED: Methylene Blue 0.5 % 50 MG/10 ML AMP IV ONE (09:17)
[2020-12-10] MEDS ORDERED: Bupivacaine 0.25% SDV 30 ML ONE (09:17)
[2020-12-10] MEDS ORDERED: Dexmedetomidine 200 mcg/2 ml 2 ml VIAL (200 mcg) ONE (09:20)
[2020-12-10] MEDS ORDERED: Propofol 10 MG/ML 20 ML BTL ONE ×2 (10:43)
[2020-12-10] MEDS ORDERED: Dexamethasone IV 4 MG/ML VIAL 1 ml VIAL ONE (10:45)
[2020-12-10] MEDS ORDERED: HYDROmorphone 1 MG/1 ML SYRINGE ONE ×2 (10:53→12:46)
[2020-12-10] MEDS ORDERED: Acetaminophen IV 1 GM/100ML 100 ML ONE (11:03)
[2020-12-10] MEDS ORDERED: Ondansetron 4 mg VIAL 2 MG/ML 2 ml VIAL ONE (11:51)
[2020-12-10] MEDS: HYDROmorphone 1 MG/1 ML SYRINGE IV PRN ×5 (12:47→13:25)
[2020-12-10] MEDS ORDERED: HYDROmorphone 1 MG/1 ML SYRINGE IV SLOW PU PRN (12:55)
[2020-12-10] MEDS ORDERED: diPHENhydraMINE IV 50 MG/ML 1 ml VIAL (BENADRYL) SLOW PUSH PRN (12:55)
[2020-12-10] MEDS ORDERED: SUMATRIPTAN SUCCINATE 4 MG SUBCUT PRN (13:02)
[2020-12-10] MEDS: Lactated Ringers 1000 ml BAG 1,000 ML IV SCH ×2 (14:19→22:45)
[2020-12-10] MEDS: SUMAtriptan Subcut 6 MG/0.5 ML VIAL SUBCUT PRN ×2 (18:36→19:58)
[2020-12-10] MEDS: Famotidine IV 10 MG/ML 2 ml VIAL (20 mg) IV SLOW PU SCH (19:58)
[2020-12-10] MEDS: Ondansetron 4 mg VIAL 2 MG/ML 2 ml VIAL IV PRN (20:05)
[2020-12-11] MEDS: Ondansetron 4 mg VIAL 2 MG/ML 2 ml VIAL IV PRN ×2 (02:57→22:28)
[2020-12-11] MEDS: Lactated Ringers 1000 ml BAG 1,000 ML IV SCH (05:40)
[2020-12-11] MEDS: Famotidine IV 10 MG/ML 2 ml VIAL (20 mg) IV SLOW PU SCH ×2 (08:13→20:24)
[2020-12-11] MEDS ORDERED: Lactated Ringers 1000 ml BAG 1,000 ML IV SCH (10:34)
[2020-12-11 11:10] LABS: ABS Lymphocytes 1.6 10^3/ul (1.0-4.8); ABS Monocytes 1.2 10^3/ul (0-0.8); ABS Neutrophils 8.8 10^3/ul (1.5-7.7); Hematocrit 40 % (35-47); Hemoglobin 13.7 g/dL (12.0-16.0); Lymphocyte % 13.8 %; Mean Corpuscular HGB Conc 34 g/dL (31-36); Mean Corpuscular Hemoglobin 32 pg (27-31); Mean Corpuscular Volume 94 fL (80-97); Mean Platelet Volume 9.3 fL (7.4-10.4); Platelet Count 230 10^3/uL (150-450); Red Blood Count 4.31 10^6 /uL (3.70-4.87); Red Cell Distribution Width 14 % (10-15); White Blood Count 11.7 10^3/uL (3.5-10.8)
[2020-12-11 11:24] LABS: Activated Partial Thrombo Time 26.4 seconds (26.0-38.0); INR 1.08 (0.82-1.09)
[2020-12-11 11:27] LABS: EGFR African American 70.9 (>60); EGFR Non-African American 58.6 (>60)
[2020-12-11] MEDS: D5W 1/2 NS KCl 20 meq 1000 ml 1,000 ML IV SCH ×2 (13:16→22:35)
[2020-12-11] MEDS: Heparin 5000 UNITS/ML 1 mL VIAL SUBCUT SCH ×2 (14:50→22:28)
[2020-12-12] MEDS: HYDROcodone/ACET. 7.5/325 LIQ 15 ML UDC PO PRN ×2 (02:51→11:48)
[2020-12-12] MEDS: Heparin 5000 UNITS/ML 1 mL VIAL SUBCUT SCH (05:46)
[2020-12-12] MEDS: D5W 1/2 NS KCl 20 meq 1000 ml 1,000 ML IV SCH (06:42)
[2020-12-12] MEDS: Famotidine IV 10 MG/ML 2 ml VIAL (20 mg) IV SLOW PU SCH (08:10)
[2020-12-12 09:51] VITALS: BP 138/71
[2020-12-14] MEDS ORDERED: Scopolamine PATCH Remove NOTE PATCH OFF SCH (11:00)
== END 2020-12-12 12:15 | disposition home or self-care (01) | DRG 403 ==
LOC: AA 07:52 → SSU 14:07
PROVIDERS: ADMIT Surgery; ATTEND Surgery

== ENCOUNTER 2020-12-15 10:36 | Inpatient (IN) ==
[2020-12-15] MEDS ORDERED: Ondansetron 4 mg VIAL 2 MG/ML 2 ml VIAL IV ONE (11:25)
[2020-12-15] MEDS ORDERED: Morphine 4 MG/ML VIAL (1 ml) IV ONE (11:25)
[2020-12-15] MEDS ORDERED: Thiamine 100 MG/ML 2 ml VIAL 100 MG, Folic Acid 1 MG, Multiple Vitamin IV ADULT 10 ML i... IV ONE (11:30)
[2020-12-15 11:57] LABS: ABS Eosinophils 0.1 10^3/ul (0-0.6); ABS Lymphocytes 1.3 10^3/ul (1.0-4.8); ABS Monocytes 1.2 10^3/ul (0-0.8); ABS Neutrophils 7.6 10^3/ul (1.5-7.7); Eosinophil % 0.7 %; Hematocrit 43 % (35-47); Hemoglobin 14.4 g/dL (12.0-16.0); Mean Corpuscular HGB Conc 34 g/dL (31-36); Mean Corpuscular Hemoglobin 32 pg (27-31); Mean Corpuscular Volume 94 fL (80-97); Mean Platelet Volume 9.7 fL (7.4-10.4); Platelet Count 211 10^3/uL (150-450); Red Blood Count 4.57 10^6 /uL (3.70-4.87); Red Cell Distribution Width 14 % (10-15); White Blood Count 10.2 10^3/uL (3.5-10.8)
[2020-12-15 12:13] LABS: Albumin 4.2 g/dL (3.2-5.2); Albumin/Globulin Ratio 1.4 (1-3); BUN/Creatinine Ratio 20.2 (8-20); Calcium 9.9 mg/dL (8.6-10.3); EGFR African American 65.4 (>60); EGFR Non-African American 54.1 (>60); Magnesium 2.1 mg/dL (1.9-2.7); Potassium 4.1 mmol/L (3.5-5.0); Total Bilirubin 0.8 mg/dL (0.2-1.0); Total Protein 7.2 g/dL (6.4-8.9)
[2020-12-15] MEDS ORDERED: Iodixanol (CONTRAST) 320 MG/ML 100 ML SDV IV ONE (12:28)
[2020-12-15] MEDS ORDERED: Prochlorperazine 5 mg/ml 2 ml VIAL (10 mg) IV PRN (13:45)
[2020-12-15] MEDS ORDERED: Acetaminophen IV 1 GM/100ML 100 ML IVPB SCH (14:00)
[2020-12-15] MEDS: HYDROmorphone 0.5 MG/0.5 ML SYRINGE IV SLOW PU PRN ×2 (15:05→23:26)
[2020-12-15] MEDS: Lactated Ringers 1000 ml BAG 1,000 ML IV SCH (17:46)
[2020-12-15] MEDS ORDERED: Bupivacaine 0.25% EPI 200,000 30 ML SDV ONE (18:42)
[2020-12-15] MEDS ORDERED: fentaNYL 100 mcg/2 ml 50 MCG/ML VIAL ONE ×4 (18:45→22:21)
[2020-12-15] MEDS ORDERED: Lidocaine 2% PF 5 ML VIAL ONE (18:46)
[2020-12-15] MEDS ORDERED: Propofol 10 MG/ML 20 ML BTL ONE (18:46)
[2020-12-15] MEDS ORDERED: Succinylcholine 200 mg VIAL 20 mg/ml 10 ml VIAL (200 mg) ONE (18:46)
[2020-12-15] MEDS ORDERED: ceFAZolin 2 GM PREMIX 2 GM/50 ML BAG ONE (18:52)
[2020-12-15] MEDS ORDERED: Dexamethasone IV 4 MG/ML VIAL 1 ml VIAL ONE (18:52)
[2020-12-15] MEDS ORDERED: ceFAZolin 1 GM ADVAN 1 GM ADDV.VIAL IVPB ONE (18:52)
[2020-12-15] MEDS ORDERED: Sodium Citrate/Citric Acid LIQ 15 ML UDC ONE (18:53)
[2020-12-15] MEDS ORDERED: Famotidine IV 10 MG/ML 2 ml VIAL (20 mg) ONE (18:53)
[2020-12-15] MEDS ORDERED: Dexamethasone IV 4 MG/ML VIAL 1 ml VIAL IV SLOW PU ONE (18:55)
[2020-12-15] MEDS ORDERED: Famotidine IV 10 MG/ML 2 ml VIAL (20 mg) IV SLOW PU ONE (18:56)
[2020-12-15] MEDS: Sodium Citrate/Citric Acid LIQ 15 ML UDC PO ONE ×2 (18:59→19:18)
[2020-12-15] MEDS ORDERED: Rocuronium 50 mg VIAL 10 mg/ml 5 ml VIAL (50 mg) ONE (19:36)
[2020-12-15] MEDS ORDERED: Naloxone 0.4 mg VIAL 0.4 mg/ml 1 ml VIAL IV PRN (21:01)
[2020-12-15] MEDS ORDERED: diPHENhydraMINE IV 50 MG/ML 1 ml VIAL (BENADRYL) IV PRN (21:01)
[2020-12-15] MEDS ORDERED: DiMENhydriNATE IV 50 mg/ml 1 ml VIAL IV PUSH PRN (21:01)
[2020-12-15] MEDS ORDERED: Acetaminophen IV 1 GM/100ML 100 ML ONE (21:03)
[2020-12-15] MEDS ORDERED: Ondansetron 4 mg VIAL 2 MG/ML 2 ml VIAL ONE (21:03)
[2020-12-15] MEDS ORDERED: DiMENhydriNATE IV 50 mg/ml 1 ml VIAL ONE (21:55)
[2020-12-15] MEDS: fentaNYL 100 mcg/2 ml 50 MCG/ML VIAL IV PRN ×5 (22:03→22:50)
[2020-12-15] MEDS: Pantoprazole VIAL 40 MG VIAL IV SCH (23:33)
[2020-12-16] MEDS: HYDROmorphone 0.5 MG/0.5 ML SYRINGE IV SLOW PU PRN ×2 (00:38→05:41)
[2020-12-16 07:25] LABS: ABS Lymphocytes 0.6 10^3/ul (1.0-4.8); ABS Monocytes 0.7 10^3/ul (0-0.8); ABS Neutrophils 10.8 10^3/ul (1.5-7.7); Hematocrit 41 % (35-47); Hemoglobin 13.4 g/dL (12.0-16.0); Lymphocyte % 5.2 %; Mean Corpuscular HGB Conc 33 g/dL (31-36); Mean Corpuscular Hemoglobin 31 pg (27-31); Mean Corpuscular Volume 94 fL (80-97); Mean Platelet Volume 9.2 fL (7.4-10.4); Platelet Count 190 10^3/uL (150-450); Red Blood Count 4.36 10^6 /uL (3.70-4.87); Red Cell Distribution Width 14 % (10-15); White Blood Count 12.2 10^3/uL (3.5-10.8)
[2020-12-16 07:42] LABS: BUN/Creatinine Ratio 15.9 (8-20); Calcium 9.1 mg/dL (8.6-10.3); EGFR African American 79.3 (>60); EGFR Non-African American 65.5 (>60); Potassium 4.5 mmol/L (3.5-5.0)
[2020-12-16] MEDS: Lactated Ringers 1000 ml BAG 1,000 ML IV SCH (08:06)
[2020-12-16] MEDS ORDERED: Acetaminophen IV 1 GM/100ML 100 ML IVPB SCH (09:30)
[2020-12-16] MEDS: Pantoprazole VIAL 40 MG VIAL IV SCH (20:41)
[2020-12-16] MEDS: HYDROmorphone 1 MG/1 ML SYRINGE IV SLOW PU PRN (22:52)
[2020-12-17] MEDS: HYDROmorphone 1 MG/1 ML SYRINGE IV SLOW PU PRN ×5 (03:44→22:19)
[2020-12-17] MEDS: Lactated Ringers 1000 ml BAG 1,000 ML IV SCH ×2 (05:58→22:20)
[2020-12-17 08:34] LABS: Hematocrit 37 % (35-47); Hemoglobin 12.5 g/dL (12.0-16.0); Mean Corpuscular HGB Conc 34 g/dL (31-36); Mean Corpuscular Hemoglobin 32 pg (27-31); Mean Corpuscular Volume 94 fL (80-97); Red Blood Count 3.96 10^6 /uL (3.70-4.87); Red Cell Distribution Width 14 % (10-15); White Blood Count 14.3 10^3/uL (3.5-10.8)
[2020-12-17 09:07] LABS: ABS Eosinophils 0.2 10^3/ul (0-0.6); ABS Lymphocytes 2.3 10^3/ul (1.0-4.8); ABS Monocytes 1.7 10^3/ul (0-0.8); ABS Neutrophils 10.1 10^3/ul (1.5-7.7); Eosinophil % 1.4 %; Lymphocyte % 16.1 %; Nucleated Red Blood Cells % 0.1
[2020-12-17 09:08] LABS: Mean Platelet Volume 10.1 fL (7.4-10.4); Platelet Count 164 10^3/uL (150-450)
[2020-12-17 09:15] LABS: CO2 Carbon Dioxide 19 mmol/L (22-32); Calcium 8.8 mg/dL (8.6-10.3); Chloride 107 mmol/L (101-111); Sodium 138 mmol/L (135-145)
[2020-12-17 09:21] LABS: BUN/Creatinine Ratio 17.1 (8-20); Blood Urea Nitrogen 14 mg/dL (6-24); EGFR Non-African American 71.1 (>60); Glucose 66 mg/dL (70-100)
[2020-12-17 09:33] LABS: Anion Gap 12 mmol/L (2-11)
[2020-12-17] MEDS ORDERED: SUMAtriptan Subcut 6 MG/0.5 ML VIAL SUBCUT PRN (12:58)
[2020-12-17] MEDS: Heparin 5000 UNITS/ML 1 mL VIAL SUBCUT SCH ×2 (14:07→21:23)
[2020-12-17] MEDS: Pantoprazole VIAL 40 MG VIAL IV SCH (21:23)
[2020-12-18] MEDS: HYDROmorphone 1 MG/1 ML SYRINGE IV SLOW PU PRN ×6 (03:44→22:58)
[2020-12-18] MEDS: Heparin 5000 UNITS/ML 1 mL VIAL SUBCUT SCH ×3 (06:03→21:39)
[2020-12-18 07:18] LABS: ABS Eosinophils 0.2 10^3/ul (0-0.6); ABS Lymphocytes 1.6 10^3/ul (1.0-4.8); ABS Monocytes 1.5 10^3/ul (0-0.8); Eosinophil % 1.7 %; Hematocrit 38 % (35-47); Hemoglobin 12.4 g/dL (12.0-16.0); Lymphocyte % 12.8 %; Mean Corpuscular HGB Conc 33 g/dL (31-36); Mean Corpuscular Hemoglobin 31 pg (27-31); Mean Corpuscular Volume 95 fL (80-97); Mean Platelet Volume 10.7 fL (7.4-10.4); Platelet Count 192 10^3/uL (150-450); Red Blood Count 3.99 10^6 /uL (3.70-4.87); Red Cell Distribution Width 14 % (10-15); White Blood Count 12.3 10^3/uL (3.5-10.8)
[2020-12-18] MEDS: D5W 1/2 NS KCl 20 meq 1000 ml 1,000 ML IV SCH ×2 (07:48→21:19)
[2020-12-18 07:49] LABS: Calcium 8.9 mg/dL (8.6-10.3); Potassium 4.2 mmol/L (3.5-5.0)
[2020-12-18 07:55] LABS: BUN/Creatinine Ratio 16.4 (8-20); EGFR African American 98.4 (>60); EGFR Non-African American 81.3 (>60)
[2020-12-18] MEDS: HYDROmorphone 0.5 MG/0.5 ML SYRINGE IV SLOW PU PRN (08:05)
[2020-12-18] MEDS: Pantoprazole VIAL 40 MG VIAL IV SCH (20:39)
[2020-12-18] MEDS ORDERED: Scopolamine PATCH Remove NOTE PATCH OFF SCH (22:00)
[2020-12-19] MEDS: Heparin 5000 UNITS/ML 1 mL VIAL SUBCUT SCH ×3 (04:57→21:57)
[2020-12-19] MEDS: HYDROmorphone 1 MG/1 ML SYRINGE IV SLOW PU PRN ×4 (08:54→19:51)
[2020-12-19 10:47] LABS: BUN/Creatinine Ratio 7.9 (8-20); Calcium 9.1 mg/dL (8.6-10.3); EGFR African American 93.9 (>60); EGFR Non-African American 77.6 (>60); Potassium 4.3 mmol/L (3.5-5.0)
[2020-12-19] MEDS: D5W 1/2 NS KCl 20 meq 1000 ml 1,000 ML IV SCH (12:06)
[2020-12-19] MEDS: HYDROcodone/ACET. 7.5/325 LIQ 15 ML UDC PO PRN ×2 (14:40→19:52)
[2020-12-19] MEDS: Pantoprazole VIAL 40 MG VIAL IV SCH (19:51)
[2020-12-19] MEDS: HYDROmorphone 0.5 MG/0.5 ML SYRINGE IV SLOW PU PRN (21:56)
[2020-12-20] MEDS: D5W 1/2 NS KCl 20 meq 1000 ml 1,000 ML IV SCH ×2 (00:29→15:27)
[2020-12-20] MEDS: HYDROmorphone 1 MG/1 ML SYRINGE IV SLOW PU PRN ×3 (00:30→22:15)
[2020-12-20] MEDS: HYDROcodone/ACET. 7.5/325 LIQ 15 ML UDC PO PRN ×5 (00:30→20:16)
[2020-12-20 04:55] LABS: ABS Eosinophils 0.3 10^3/ul (0-0.6); ABS Monocytes 1.2 10^3/ul (0-0.8); Eosinophil % 3.3 %; Hematocrit 36 % (35-47); Hemoglobin 11.9 g/dL (12.0-16.0); Lymphocyte % 23.2 %; Mean Corpuscular HGB Conc 33 g/dL (31-36); Mean Corpuscular Hemoglobin 31 pg (27-31); Mean Corpuscular Volume 94 fL (80-97); Mean Platelet Volume 9.5 fL (7.4-10.4); Platelet Count 235 10^3/uL (150-450); Red Blood Count 3.81 10^6 /uL (3.70-4.87); Red Cell Distribution Width 14 % (10-15); White Blood Count 8.5 10^3/uL (3.5-10.8)
[2020-12-20] MEDS: Heparin 5000 UNITS/ML 1 mL VIAL SUBCUT SCH ×3 (05:06→22:15)
[2020-12-20] MEDS: HYDROmorphone 0.5 MG/0.5 ML SYRINGE IV SLOW PU PRN ×3 (07:58→15:17)
[2020-12-20] MEDS ORDERED: Iohexol 300 (CONTRAST) 10 ML SDV IV ONE (09:14)
[2020-12-20] MEDS: Pantoprazole VIAL 40 MG VIAL IV SCH (20:16)
[2020-12-21] MEDS: D5W 1/2 NS KCl 20 meq 1000 ml 1,000 ML IV SCH ×2 (03:22→22:51)
[2020-12-21] MEDS: HYDROmorphone 1 MG/1 ML SYRINGE IV SLOW PU PRN (04:51)
[2020-12-21] MEDS: Heparin 5000 UNITS/ML 1 mL VIAL SUBCUT SCH ×3 (04:51→22:55)
[2020-12-21] MEDS ORDERED: Bupivacaine 0.25% EPI 200,000 30 ML SDV ONE (07:16)
[2020-12-21] MEDS ORDERED: ceFOXitin 2 GM IVPREMIX 2 GM/50 ML BAG ONE (07:59)
[2020-12-21] MEDS ORDERED: Midazolam 5 mg/5 ml VIAL 1 mg/ml 5 ml VIAL (5 mg) ONE (08:00)
[2020-12-21] MEDS ORDERED: fentaNYL 100 mcg/2 ml 50 MCG/ML VIAL ONE ×3 (08:00→09:25)
[2020-12-21] MEDS ORDERED: Rocuronium 50 mg VIAL 10 mg/ml 5 ml VIAL (50 mg) ONE ×2 (08:17→09:42)
[2020-12-21] MEDS ORDERED: Lidocaine 2% PF 5 ML VIAL ONE (08:58)
[2020-12-21] MEDS ORDERED: Propofol 10 MG/ML 20 ML BTL ONE (08:58)
[2020-12-21] MEDS ORDERED: Succinylcholine 200 mg VIAL 20 mg/ml 10 ml VIAL (200 mg) ONE (08:58)
[2020-12-21] MEDS ORDERED: Dexamethasone IV 4 MG/ML VIAL 1 ml VIAL ONE (08:58)
[2020-12-21] MEDS ORDERED: Ondansetron 4 mg VIAL 2 MG/ML 2 ml VIAL ONE (08:58)
[2020-12-21] MEDS ORDERED: DiMENhydriNATE IV 50 mg/ml 1 ml VIAL ONE (08:58)
[2020-12-21] MEDS ORDERED: Naloxone 0.4 mg VIAL 0.4 mg/ml 1 ml VIAL IV PRN (09:14)
[2020-12-21] MEDS ORDERED: HYDROmorphone 1 MG/1 ML SYRINGE IV PRN (09:14)
[2020-12-21] MEDS ORDERED: DiMENhydriNATE IV 50 mg/ml 1 ml VIAL IV PUSH PRN (09:14)
[2020-12-21] MEDS ORDERED: Acetaminophen IV 1 GM/100ML 100 ML ONE (10:41)
[2020-12-21] MEDS ORDERED: Acetaminophen IV 1 GM/100ML 1,000 MG/100 ML VIAL IVPB ONE (10:43)
[2020-12-21] MEDS: Piperacillin/Tazobac ADVAN 3.375 GM in NS 0.9% 100 ml BAG 100 ML IV SCH ×2 (13:31→22:52)
[2020-12-21] MEDS: Pantoprazole VIAL 40 MG VIAL IV SCH (22:54)
[2020-12-22] MEDS: HYDROmorphone 0.5 MG/0.5 ML SYRINGE IV SLOW PU PRN ×2 (00:07→22:30)
[2020-12-22] MEDS: HYDROmorphone 1 MG/1 ML SYRINGE IV SLOW PU PRN ×3 (02:18→15:27)
[2020-12-22] MEDS ORDERED: HYDROmorphone 1 MG/1 ML SYRINGE IV SLOW PU ONE (03:00)
[2020-12-22] MEDS: Piperacillin/Tazobac ADVAN 3.375 GM in NS 0.9% 100 ml BAG 100 ML IV SCH ×3 (05:59→22:27)
[2020-12-22] MEDS: Heparin 5000 UNITS/ML 1 mL VIAL SUBCUT SCH ×3 (06:01→22:37)
[2020-12-22] MEDS ORDERED: HYDROcodone/ACET. 7.5/325 LIQ 15 ML UDC PO PRN (08:46)
[2020-12-22] MEDS: HYDROcodone/ACET. 7.5/325 LIQ 15 ML UDC PO PRN ×2 (12:50→18:29)
[2020-12-22] MEDS: D5W 1/2 NS KCl 20 meq 1000 ml 1,000 ML IV SCH (12:51)
[2020-12-22] MEDS: Pantoprazole VIAL 40 MG VIAL IV SCH (22:32)
[2020-12-23] MEDS: D5W 1/2 NS KCl 20 meq 1000 ml 1,000 ML IV SCH (03:01)
[2020-12-23] MEDS: HYDROcodone/ACET. 7.5/325 LIQ 15 ML UDC PO PRN ×3 (03:03→21:57)
[2020-12-23] MEDS: HYDROmorphone 1 MG/1 ML SYRINGE IV SLOW PU PRN (03:58)
[2020-12-23] MEDS: Heparin 5000 UNITS/ML 1 mL VIAL SUBCUT SCH ×3 (06:14→21:59)
[2020-12-23] MEDS: Piperacillin/Tazobac ADVAN 3.375 GM in NS 0.9% 100 ml BAG 100 ML IV SCH ×3 (06:15→22:00)
[2020-12-23] MEDS ORDERED: Nortriptyline 25 mg TAB PO SCH (21:00)
[2020-12-24] MEDS: HYDROcodone/ACET. 7.5/325 LIQ 15 ML UDC PO PRN ×2 (05:55→10:13)
[2020-12-24] MEDS: Piperacillin/Tazobac ADVAN 3.375 GM in NS 0.9% 100 ml BAG 100 ML IV SCH (05:57)
[2020-12-24] MEDS: Heparin 5000 UNITS/ML 1 mL VIAL SUBCUT SCH (06:00)
[2020-12-24 08:10] VITALS: BP 157/72
== END 2020-12-24 10:35 | disposition home or self-care (01) | DRG 223 ==
LOC: SSU 10:36 → ED 10:36 → SSU 14:38
PROVIDERS: ADMIT Surgery; ATTEND Surgery

== ENCOUNTER 2021-10-08 06:44 | Observation (INO) ==
[2021-10-08] MEDS ORDERED: Lactated Ringers 1000 ml BAG 1,000 ML IV ONE (07:12)
[2021-10-08] MEDS ORDERED: Morphine 4 MG/ML VIAL (1 ml) IV ONE (07:12)
[2021-10-08] MEDS ORDERED: HYDROmorphone 0.5 MG/0.5 ML SYRINGE IV ONE ×2 (07:20→08:08)
[2021-10-08 07:32] LABS: ABS Basophils 0.1 10^3/ul (0-0.2); ABS Eosinophils 0.1 10^3/ul (0-0.6); ABS Monocytes 0.5 10^3/ul (0-0.8); ABS Neutrophils 2.7 10^3/ul (1.5-7.7); Eosinophil % 2.6 %; Hematocrit 44 % (35-47); Hemoglobin 14.6 g/dL (12.0-16.0); Lymphocyte % 36.9 %; Mean Corpuscular HGB Conc 34 g/dL (31-36); Mean Corpuscular Hemoglobin 33 pg (27-31); Mean Corpuscular Volume 98 fL (80-97); Mean Platelet Volume 9.2 fL (7.4-10.4); Platelet Count 178 10^3/uL (150-450); Red Blood Count 4.46 10^6 /uL (3.70-4.87); Red Cell Distribution Width 14 % (10-15); White Blood Count 5.3 10^3/uL (3.5-10.8)
[2021-10-08 07:43] LABS: Albumin 4.3 g/dL (3.2-5.2); Albumin/Globulin Ratio 1.6 (1-3); Calcium 10.1 mg/dL (8.6-10.3); Globulin 2.7 g/dL (2-4); Potassium 4.4 mmol/L (3.5-5.0); Total Bilirubin 0.5 mg/dL (0.2-1.0); eGFR CKD-EPI 73.7 (>60)
[2021-10-08] MEDS ORDERED: Famotidine IV 10 MG/ML 2 ml VIAL (20 mg) IV SLOW PU ONE (08:08)
[2021-10-08] MEDS ORDERED: Iohexol 300 (CONTRAST) 10 ML SDV IV ONE (08:43)
[2021-10-08] MEDS ORDERED: Ondansetron 4 mg VIAL 2 MG/ML 2 ml VIAL IV ONE ×2 (09:15→10:10)
[2021-10-08] MEDS ORDERED: HYDROmorphone 0.5 MG/0.5 ML SYRINGE IV SLOW PU PRN (13:50)
[2021-10-08] MEDS ORDERED: HYDROmorphone 1 MG/1 ML SYRINGE IV SLOW PU PRN (13:52)
[2021-10-08] MEDS: Acetaminophen IV 1 GM/100ML 100 ML IV SCH ×2 (14:52→20:06)
[2021-10-08] MEDS: Ondansetron 4 mg VIAL 2 MG/ML 2 ml VIAL IV PRN (15:12)
[2021-10-08] MEDS: D5NS 0.9% 1000 ml BAG 1,000 ML IV SCH (15:58)
[2021-10-08] MEDS ORDERED: diPHENhydraMINE IV 50 MG/ML 1 ml VIAL (BENADRYL) ONE (16:38)
[2021-10-08] MEDS ORDERED: Morphine 2 MG/ML SYRINGE ONE (16:38)
[2021-10-08] MEDS: Morphine 2 MG/ML SYRINGE IV PRN ×2 (16:40→22:30)
[2021-10-08] MEDS: DiMENhydriNATE IV 50 mg/ml 1 ml VIAL IV PUSH PRN ×2 (16:41→22:30)
[2021-10-08] MEDS: CMC:Cyclosporine 0.05% OPHTH (NF) 0.4 ML VIAL BOTH EYES SCH (20:07)
[2021-10-09] MEDS: Acetaminophen IV 1 GM/100ML 100 ML IV SCH ×4 (01:42→21:03)
[2021-10-09] MEDS: D5NS 0.9% 1000 ml BAG 1,000 ML IV SCH ×3 (01:42→23:30)
[2021-10-09] MEDS: Morphine 2 MG/ML SYRINGE IV PRN (03:31)
[2021-10-09 06:10] LABS: ABS Basophils 0.1 10^3/ul (0-0.2); ABS Eosinophils 0.1 10^3/ul (0-0.6); ABS Lymphocytes 2.7 10^3/ul (1.0-4.8); ABS Monocytes 0.5 10^3/ul (0-0.8); ABS Neutrophils 2.2 10^3/ul (1.5-7.7); Eosinophil % 2.3 %; Hematocrit 38 % (35-47); Hemoglobin 12.9 g/dL (12.0-16.0); Lymphocyte % 47.9 %; Mean Corpuscular HGB Conc 34 g/dL (31-36); Mean Corpuscular Hemoglobin 33 pg (27-31); Mean Corpuscular Volume 97 fL (80-97); Mean Platelet Volume 8.9 fL (7.4-10.4); Nucleated Red Blood Cells % 0.1; Platelet Count 159 10^3/uL (150-450); Red Blood Count 3.92 10^6 /uL (3.70-4.87); Red Cell Distribution Width 14 % (10-15); White Blood Count 5.7 10^3/uL (3.5-10.8)
[2021-10-09 06:27] LABS: C Reactive Protein 1.08 mg/L (<8.01); Calcium 9.5 mg/dL (8.6-10.3); Potassium 4.2 mmol/L (3.5-5.0); eGFR CKD-EPI 77.9 (>60)
[2021-10-09] MEDS: CMC:Cyclosporine 0.05% OPHTH (NF) 0.4 ML VIAL BOTH EYES SCH ×2 (10:57→21:03)
[2021-10-09] MEDS ORDERED: Midazolam 10 mg/10 ml VIAL 1 mg/ml 10 ml VIAL (10 mg) ONE (11:35)
[2021-10-09] MEDS ORDERED: fentaNYL 100 mcg/2 ml 50 MCG/ML VIAL ONE (11:35)
[2021-10-09] MEDS: Pantoprazole VIAL 40 MG VIAL IV SCH ×2 (12:59→21:05)
[2021-10-09] MEDS: Ondansetron 4 mg VIAL 2 MG/ML 2 ml VIAL IV PRN ×2 (13:04→18:14)
[2021-10-09] MEDS: DiMENhydriNATE IV 50 mg/ml 1 ml VIAL IV PUSH PRN ×2 (14:42→21:03)
[2021-10-09] MEDS ORDERED: Calcium Carb (TUMS) 500 mg CHEW TAB ONE (16:12)
[2021-10-09] MEDS: [UNRECOGNIZED DRUG - OTHER] BOTH EYES SCH (21:05)
[2021-10-09] MEDS: FLUOROMETHOLONE 0.1% BOTH EYES SCH (21:05)
[2021-10-10] MEDS: Acetaminophen IV 1 GM/100ML 100 ML IV SCH ×3 (03:17→15:23)
[2021-10-10] MEDS: DiMENhydriNATE IV 50 mg/ml 1 ml VIAL IV PUSH PRN (07:39)
[2021-10-10] MEDS: CMC:Cyclosporine 0.05% OPHTH (NF) 0.4 ML VIAL BOTH EYES SCH ×2 (09:11→20:15)
[2021-10-10] MEDS: D5NS 0.9% 1000 ml BAG 1,000 ML IV SCH (09:13)
[2021-10-10] MEDS: Pantoprazole VIAL 40 MG VIAL IV SCH ×2 (09:13→20:15)
[2021-10-10] MEDS: [UNRECOGNIZED DRUG - OTHER] BOTH EYES SCH ×2 (09:29→20:15)
[2021-10-10] MEDS: FLUOROMETHOLONE 0.1% BOTH EYES SCH ×2 (09:29→20:15)
[2021-10-10] MEDS ORDERED: Morphine 2 MG/ML SYRINGE IV PRN (15:37)
[2021-10-11] MEDS: oxyCODONE/Acetamin 5/325 mg TAB PO PRN ×2 (05:24→09:28)
[2021-10-11] MEDS: Pantoprazole VIAL 40 MG VIAL IV SCH (09:28)
[2021-10-11] MEDS: [UNRECOGNIZED DRUG - OTHER] BOTH EYES SCH (09:28)
[2021-10-11] MEDS: FLUOROMETHOLONE 0.1% BOTH EYES SCH (09:28)
[2021-10-11] MEDS: CMC:Cyclosporine 0.05% OPHTH (NF) 0.4 ML VIAL BOTH EYES SCH (09:28)
[2021-10-11 11:34] VITALS: BP 143/74
== END 2021-10-11 13:30 | disposition home or self-care (01) ==
LOC: ED 06:44 → EDHOLD 06:44 → SSU 15:40
PROVIDERS: ADMIT Surgery; ATTEND Surgery